=== PATIENT | female | born 1970 | race Caucasian/White ===

== ENCOUNTER 2018-07-12 05:54 | Observation (INO) | payer OTHER ==
[~2018-07-12] VITALS: Ht 167.6 cm; Wt 59.0 kg
[~2018-07-12 05:54] MED LIST: ALBU8.5H8 INH; ALPR1TAB2 PO; CETI10TA24 PO; DULO30CA2 PO; FLUT1DIS3 INH; FLUT9.9S NAS; ONDA4TAB10 PO; PANT40TA5 PO; SPIR50TA4 PO; VITAMIN E PO
[2018-07-12] MEDS ORDERED: LACTATED RINGERS 1,000 ML IV SCH ×2 (06:33→08:54)
[2018-07-12 06:34] VITALS: BP 113/73
[2018-07-12] MEDS ORDERED: BUPIVACAINE/PF-EPI 0.5% 1:200K ONE (06:48)
[2018-07-12] MEDS ORDERED: MIDAZOLAM 1 MG/ML, 2ML ONE (07:13)
[2018-07-12] MEDS ORDERED: FENTANYL PF 250 MCG/5ML ONE (07:14)
[2018-07-12] MEDS ORDERED: ROCURONIUM 10 MG/ML,10ML ONE (07:28)
[2018-07-12] MEDS ORDERED: CEFAZOLIN 1,000 MG ONE (07:28)
[2018-07-12] MEDS ORDERED: ONDANSETRON 2MG/ML, 2ML ONE (07:28)
[2018-07-12] MEDS ORDERED: DEXAMETHASONE 4 MG/ML, 1ML ONE (07:28)
[2018-07-12] MEDS ORDERED: PROPOFOL 10 MG/ML, 20ML ONE (07:28)
[2018-07-12] MEDS ORDERED: FENTANYL PF 100 MCG/2ML IV PRN (07:30)
[2018-07-12] MEDS ORDERED: ACETAMINOPHEN 325 MG TABLET PO PRN (07:30)
[2018-07-12] MEDS ORDERED: PROMETHAZINE 25 MG/ML, 1ML IV PRN (07:30)
[2018-07-12] MEDS ORDERED: hydrALAzine 20 MG/ML, 1ML IV PRN (07:30)
[2018-07-12] MEDS ORDERED: OXYcodone 5 MG/5 ML ORAL.SOL UDC PO PRN (07:30)
[2018-07-12] MEDS ORDERED: KETOROLAC 30 MG/1 ML IV PRN (07:30)
[2018-07-12] MEDS ORDERED: LABETALOL 5MG/ML, 20ML IV PRN (07:30)
[2018-07-12] MEDS ORDERED: ALBUTEROL SULFATE 2.5 MG/3 ML NPPB PRN (07:30)
[2018-07-12] MEDS ORDERED: SUGAMMADEX 200 MG/2 ML IVPush ONE (08:45)
[2018-07-12] MEDS ORDERED: MEPERIDINE/PF 50 MG/ML ONE (08:55)
[2018-07-12] MEDS ORDERED: LORazepam 2 MG/ML, 1ML ONE ×3 (08:56→15:25)
[2018-07-12] MEDS ORDERED: HYDROmorphone 2 MG/ML, 1ML ONE ×2 (08:56→09:43)
[2018-07-12] MEDS: LORazepam 2 MG/ML, 1ML IVPush PRN ×4 (08:57→09:42)
[2018-07-12] MEDS: MEPERIDINE/PF 25MG/0.5ML IVPush PRN ×2 (08:59→09:15)
[2018-07-12] MEDS ORDERED: morphine SULFATE 10 MG/ML, 1ML IVPush PRN (09:00)
[2018-07-12] MEDS ORDERED: TEMPLATE NON-FORMULARY MED. (Fluticasone/Salmeterol** (Advair 250-50 Diskus**) 1 PUFF) INH SCH (09:00)
[2018-07-12] MEDS ORDERED: HYDROcodone/APAP 7.5-325MG/15ML UDC PO PRN ×2 (09:00)
[2018-07-12] MEDS ORDERED: ACETAMINOPHEN 1,000 MG/100 ML IV IVPB ONE (09:00)
[2018-07-12] MEDS ORDERED: TEMPLATE NON-FORMULARY MED. (Albuterol Sulfate (Proair Hfa) 1 PUFF) INH SCH (09:00)
[2018-07-12] MEDS ORDERED: ONDANSETRON 2MG/ML, 2ML IVPush PRN (09:00)
[2018-07-12] MEDS ORDERED: ALBUTEROL SULFATE 2.5 MG/3 ML ONE (09:05)
[2018-07-12] MEDS: HYDROmorphone 1 MG/ML, 1ML IV PRN ×7 (09:06→09:59)
[2018-07-12] MEDS ORDERED: OXYcodone 5 MG/5 ML ORAL.SOL UDC ONE (09:32)
[2018-07-12] MEDS ORDERED: LORazepam 2 MG/ML, 1ML IVPush ONE ×2 (12:30→14:30)
[2018-07-12] MEDS ORDERED: KETOROLAC 30 MG/1 ML IVPush ONE (12:30)
== END 2018-07-12 15:35 | disposition home or self-care (01) ==
LOC: OUT 05:54 → EDSTATUS 07:30 → ORIP 08:54
PROVIDERS: ADMIT Thoracic Surgery (Cardiothoracic Vascular Surgery); ATTEND Thoracic Surgery (Cardiothoracic Vascular Surgery)
DX: K22.70 Barrett's esophagus without dysplasia (principal); K44.9 Diaphragmatic hernia without obstruction or gangrene; K21.9 Gastro-esophageal reflux disease without esophagitis
CPT/HCPCS: 43280; 88305; 94640; G0378; J0131; J0690; J1100; J1170; J1885; J2060; J2175; J2250; J2270; J2405; J2704; J3010; J7120; J7613